=== PATIENT | male | born 1950 | race Two or more races ===

== ENCOUNTER 2022-12-11 11:25 | Inpatient (IN) | payer OTHER ==
[~2022-12-11] VITALS: Ht 177.8 cm; Wt 69.3 kg
[2022-12-11] MEDS ORDERED: SODIUM CHLORIDE 0.9% 1,000 ML IV ONE (12:00)
[2022-12-11 12:09] LABS: Basophils # (auto) 0.1 10 ^3/uL (0-0.2); Basophils % (auto) 0.9 % (0.0-2.0); Eosinophils # (auto) 0.3 10 ^3/uL (0-0.8); Eosinophils % (auto) 3.9 % (0.0-7.0); Hematocrit 36.1 % (41.0-53.0); Hemoglobin 12.1 g/dL (13.5-17.5); Lymphocytes % (auto) 11.1 % (10.0-50.0); Mean Corpuscular Hemoglobin 30.3 pg (28.0-32.0); Mean Corpuscular Hgb Conc. 33.4 g/dL (32.0-36.0); Mean Corpuscular Volume 90.9 fL (80.0-100.0); Monocytes # (auto) 0.8 10 ^3/uL (0-1.3); Monocytes % (auto) 8.7 % (0.0-12.0); Neutrophils # (auto) 6.7 10 ^3/uL (1.6-8.6); Neutrophils % (auto) 75.4 % (37.0-80.0); Red Blood Cells 3.98 10^6/uL (4.5-5.90); Red Cell Distribution Width 12.6 % (11.8-14.3); White Blood Cell 8.9 10^3/uL (4.4-10.8)
[2022-12-11 12:24] LABS: INR 0.97 (0.9-1.15); Partial Thromboplastin Time 31.3 sec (24.6-33.4)
[2022-12-11 12:30] LABS: Potassium 4.8 mmol/L (3.5-5.1)
[2022-12-11 12:36] LABS: Urine Bacteria NONE SEEN /hpf (None Seen); Urine Blood Negative /uL (Negative); Urine Specific Gravity 1.013 (1.001-1.035); Urine WBC <1 /hpf (0 - 3)
[2022-12-11 12:37] LABS: Albumin 3.3 g/dL (3.4-5.0); BUN/Creatinine Ratio 24.4 (10.0-20.0); Bilirubin, Total 0.4 mg/dL (0.2-1.0); Calcium 8.6 mg/dL (8.5-10.1); Magnesium 2.3 mg/dL (1.6-2.6); Total Protein 6.7 g/dL (6.4-8.2)
[2022-12-11] MEDS ORDERED: ENOXAPARIN SOD 60 MG/0.6 ML SYRINGE SC ONE (13:30)
[2022-12-11] MEDS ORDERED: cloNIDine HCL 0.1 MG TAB PO ONE (14:15)
[2022-12-11] MEDS ORDERED: LORazepam 2MG/ML-1ML VIAL IV ONE (16:15)
[2022-12-11] MEDS ORDERED: IOHEXOL 350 MG/ML 100ML IJ ONE (16:47)
[2022-12-11] MEDS: METOPROLOL TARTRATE 25 MG TAB PO SCH ×2 (17:30→23:10)
[2022-12-11] MEDS ORDERED: ACETAMINOPHEN 325 MG TAB PO PRN (18:30)
[2022-12-11] MEDS ORDERED: DEXTROSE (50%) 50ML SYRG IV PRN (18:30)
[2022-12-11] MEDS: hydrALAZINE HCL 20 MG/ML VL IV PRN (20:21)
[2022-12-11] MEDS ORDERED: LORazepam 2MG/ML-1ML VIAL IV PRN (22:00)
[2022-12-11 22:34] LABS: Cholesterol 116 mg/dL (< 200)
[2022-12-11 22:36] LABS: HDL Cholesterol 19 mg/dL (40-59); LDL Cholesterol 71 mg/dL (< 100); Triglycerides 68 mg/dL (< 150)
[2022-12-11 22:43] LABS: Alcohol, Urine < 3.0 mg/dL (0-10); Amphetamine Screen, Urine NEGATIVE (NEGATIVE); Barbiturate Scree,Urine NEGATIVE (NEGATIVE); Benzodiazephine Screen, Urine NEGATIVE (NEGATIVE); Cannabinoid Screen, Urine NEGATIVE (NEGATIVE); Cocaine Screen, Urine NEGATIVE (NEGATIVE); Opiate Scree,Urine NEGATIVE (NEGATIVE); Phencyclidine Screen, Urine NEGATIVE (NEGATIVE)
[2022-12-11] MEDS: InsuLIN REG 1unit/0.01ml Soln (100units/ml) SC SCH (23:07)
[2022-12-11] MEDS: ACCU-CHEK COMFORT CURVE STRIP VI SCH (23:08)
[2022-12-11] MEDS: ATORVASTATIN 20 MG TAB PO SCH (23:08)
[2022-12-12] MEDS: InsuLIN REG 1unit/0.01ml Soln (100units/ml) SC SCH ×4 (06:44→22:00)
[2022-12-12] MEDS: ACCU-CHEK COMFORT CURVE STRIP VI SCH ×4 (06:45→22:00)
[2022-12-12] MEDS: METOPROLOL TARTRATE 25 MG TAB PO SCH ×2 (10:00→23:29)
[2022-12-12] MEDS ORDERED: ASPirin-EC 81 mg tab PO SCH (10:00)
[2022-12-12] MEDS: ASPirin 81 mg TAB PO SCH (10:09)
[2022-12-12] MEDS ORDERED: ATOR20TA50 PO (11:19)
[2022-12-12] MEDS ORDERED: MET25T PO (11:19)
[2022-12-12] MEDS ORDERED: ASPI-325 PO (11:19)
[2022-12-12 11:53] LABS: Folate (Folic Acid) > 24.00 ng/mL (5.38-24)
[2022-12-12 23:23] VITALS: BP 153/74
[2022-12-12] MEDS: ATORVASTATIN 20 MG TAB PO SCH (23:29)
[2022-12-13] VITALS (8 sets, daily range): BP systolic 95–159; BP diastolic 60–82
[2022-12-13] MEDS: InsuLIN REG 1unit/0.01ml Soln (100units/ml) SC SCH ×4 (07:00→22:04)
[2022-12-13] MEDS: ACCU-CHEK COMFORT CURVE STRIP VI SCH ×4 (07:00→21:29)
[2022-12-13] MEDS: CLOPIDOGREL BISULFATE 75 MG TAB PO SCH (10:24)
[2022-12-13] MEDS: METOPROLOL TARTRATE 25 MG TAB PO SCH ×2 (10:24→21:15)
[2022-12-13] MEDS: ASPirin 81 mg TAB PO SCH (10:25)
[2022-12-13] MEDS ORDERED: SODIUM CHL 0.9% 0 ML ONE (11:37)
[2022-12-13] MEDS ORDERED: ANGIOMAX 250 MG VIAL IV ONE (11:37)
[2022-12-13] MEDS ORDERED: IODIXANOL 320MG/ML 100ML BTL IV ONE (11:50)
[2022-12-13] MEDS ORDERED: LIDOCAINE 2%HCL (LOCAL ANESTH.) INJ 10ml MDV ONE (11:50)
[2022-12-13] MEDS ORDERED: GLYCOPYRROLATE 0.2 MG/ML 1ML VIAL ONE (11:54)
[2022-12-13] MEDS ORDERED: hydrALAZINE HCL 20 MG/ML VL ONE (12:02)
[2022-12-13] MEDS: ATORVASTATIN 20 MG TAB PO SCH (21:15)
[2022-12-14] VITALS (9 sets, daily range): BP systolic 87–165; BP diastolic 51–81
[2022-12-14] MEDS: InsuLIN REG 1unit/0.01ml Soln (100units/ml) SC SCH ×4 (06:15→22:32)
[2022-12-14] MEDS: ACCU-CHEK COMFORT CURVE STRIP VI SCH ×4 (06:16→22:28)
[2022-12-14] MEDS: METOPROLOL TARTRATE 25 MG TAB PO SCH ×2 (09:45→22:38)
[2022-12-14] MEDS: ASPirin 81 mg TAB PO SCH (09:45)
[2022-12-14] MEDS: CLOPIDOGREL BISULFATE 75 MG TAB PO SCH (09:45)
[2022-12-14] MEDS: ATORVASTATIN 20 MG TAB PO SCH (22:38)
[2022-12-15 05:00] VITALS: BP 161/84
[2022-12-15] MEDS: InsuLIN REG 1unit/0.01ml Soln (100units/ml) SC SCH ×2 (06:18→12:09)
[2022-12-15] MEDS: ACCU-CHEK COMFORT CURVE STRIP VI SCH ×2 (06:18→12:08)
[2022-12-15] MEDS: hydrALAZINE HCL 20 MG/ML VL IV PRN (06:19)
[2022-12-15] MEDS: METOPROLOL TARTRATE 25 MG TAB PO SCH (08:51)
[2022-12-15] MEDS: CLOPIDOGREL BISULFATE 75 MG TAB PO SCH (08:51)
[2022-12-15] MEDS: ASPirin 81 mg TAB PO SCH (08:51)
[2022-12-15 09:47] VITALS: BP 112/46
[2022-12-15 14:22] VITALS: BP 113/62
== END 2022-12-15 16:35 | disposition home health service (06) | DRG 68 ==
LOC: ER 11:25 → TELE 18:18 → TELE-WESTW 12-12 22:10
PROVIDERS: ADMIT Internal Medicine; ATTEND Internal Medicine
PROC: B315YZZ Fluoroscopy of Bilateral Common Carotid Arteries using Other Contrast (ICD-10-PCS; principal; 2022-12-13)
PROC: B312YZZ Fluoroscopy of Left Subclavian Artery using Other Contrast (ICD-10-PCS; 2022-12-13)
PROC: B318YZZ Fluoroscopy of Bilateral Internal Carotid Arteries using Other Contrast (ICD-10-PCS; 2022-12-13)
PROC: B31CYZZ Fluoroscopy of Bilateral External Carotid Arteries using Other Contrast (ICD-10-PCS; 2022-12-13)
DX: I65.23 Occlusion and stenosis of bilateral carotid arteries (principal); E10.65 Type 1 diabetes mellitus with hyperglycemia; I10 Essential (primary) hypertension; M50.30 Other cervical disc degeneration, unspecified cervical region; E10.51 Type 1 diabetes mellitus with diabetic peripheral angiopathy without gangrene; Z20.822 Contact with and (suspected) exposure to COVID-19; E78.5 Hyperlipidemia, unspecified; Z79.899 Other long term (current) drug therapy; Z79.82 Long term (current) use of aspirin; Z80.7 Family history of other malignant neoplasms of lymphoid, hematopoietic and related tissues; Z83.3 Family history of diabetes mellitus; Z86.73 Personal history of transient ischemic attack (TIA), and cerebral infarction without residual deficits; Z89.411 Acquired absence of right great toe
CPT/HCPCS: 36223; 36415; 70450; 70496; 70551; 71045; 72141; 76937; 80053; 80061; 80307; 81001; 82607; 82746; 82962; 83735; 83880; 84443; 84484; 85025; 85610; 85730; 87426; 93005; 93306; 93886; 95819; 96360; 96372; 97163; G0378; J1815; J2001; Q9967

== ENCOUNTER 2022-12-27 09:17 | Inpatient (IN) | payer OTHER ==
[~2022-12-27] VITALS: Ht 177.8 cm; Wt 75.5 kg
[~2022-12-27 09:17] MED LIST: ASPI-325 PO; ATOR20TA50 PO; MET25T PO
[2022-12-27 10:26] LABS: Albumin 2.8 g/dL (3.4-5.0); Basophils # (auto) 0 10 ^3/uL (0-0.2); Basophils % (auto) 0.2 % (0.0-2.0); Calcium 8.3 mg/dL (8.5-10.1); Eosinophils # (auto) 0 10 ^3/uL (0-0.8); Hematocrit 30.4 % (41.0-53.0); Hemoglobin 10.1 g/dL (13.5-17.5); Lymphocytes # (auto) 0.5 10 ^3/uL (0.4-5.4); Lymphocytes % (auto) 3.1 % (10.0-50.0); Mean Corpuscular Hemoglobin 29.9 pg (28.0-32.0); Mean Corpuscular Hgb Conc. 33.4 g/dL (32.0-36.0); Mean Corpuscular Volume 89.6 fL (80.0-100.0); Monocytes # (auto) 1.3 10 ^3/uL (0-1.3); Neutrophils # (auto) 12.9 10 ^3/uL (1.6-8.6); Neutrophils % (auto) 87.7 % (37.0-80.0); Potassium 4.4 mmol/L (3.5-5.1); Red Blood Cells 3.39 10^6/uL (4.5-5.90); Red Cell Distribution Width 12.6 % (11.8-14.3); White Blood Cell 14.7 10^3/uL (4.4-10.8)
[2022-12-27 10:31] LABS: Bilirubin, Total 0.7 mg/dL (0.2-1.0); Total Protein 6.3 g/dL (6.4-8.2)
[2022-12-27] MEDS ORDERED: ENOXAPARIN SOD 80 MG/0.8ML SYRINGE SC ONE (11:00)
[2022-12-27] MEDS ORDERED: CLINDAMYCIN 600MG IV 50 ML IV ONE (12:45)
[2022-12-27] MEDS ORDERED: PIPERACILLIN-TAZOB 3.375GM 100 ML IV ONE (12:45)
[2022-12-27] MEDS ORDERED: SODIUM CHLORIDE 0.9% 1,000 ML IV ONE ×2 (12:45)
[2022-12-27] MEDS ORDERED: CLINDAMYCIN HCL 150 MG CAP PO ONE (13:15)
[2022-12-27] MEDS ORDERED: MORPHINE SULFATE INJ 2 MG/ml SYRG IV PRN ×3 (14:30)
[2022-12-27] MEDS ORDERED: DEXTROSE (50%) 50ML SYRG IV PRN (14:30)
[2022-12-27] MEDS ORDERED: NITROGLYCERIN 0.4 MG SL TAB SL PRN (14:30)
[2022-12-27] MEDS ORDERED: ONDANSETRON HCL 4 MG/2 ML VIAL IV PRN (14:30)
[2022-12-27] MEDS: SODIUM CHLORIDE 0.9% 1,000 ML IV SCH (14:54)
[2022-12-27 15:04] LABS: Cholesterol 90 mg/dL (< 200)
[2022-12-27 15:07] LABS: HDL Cholesterol 41 mg/dL (40-59); LDL Cholesterol 46 mg/dL (< 100); Triglycerides 48 mg/dL (< 150)
[2022-12-27 15:40] LABS: INR 1.15 (0.9-1.15)
[2022-12-27] MEDS: InsuLIN REG 1unit/0.01ml Soln (100units/ml) SC SCH ×2 (17:32→22:00)
[2022-12-27] MEDS: ACCU-CHEK COMFORT CURVE STRIP VI SCH ×2 (17:32→22:41)
[2022-12-27] MEDS: PIPERACILLIN-TAZOB 3.375GM 100 ML IV SCH (18:00)
[2022-12-27] MEDS ORDERED: fentaNYL CITRATE 100 MCG/2 ML VL ONE (18:32)
[2022-12-27] MEDS ORDERED: ANGIOMAX 250 MG VIAL IV ONE (18:32)
[2022-12-27] MEDS ORDERED: MIDAZOLAM HCL 2MG/2ML 2ml VIAL (1mg/ml) ONE (18:33)
[2022-12-27] MEDS ORDERED: SODIUM CHL 0.9% 0 ML ONE (18:33)
[2022-12-27] MEDS ORDERED: LIDOCAINE 2%HCL (LOCAL ANESTH.) INJ 20ML MDV ONE (18:49)
[2022-12-27] MEDS ORDERED: IODIXANOL 320MG/ML 100ML BTL IV ONE (18:49)
[2022-12-27 19:40] VITALS: BP 107/62
[2022-12-27 19:55] VITALS: BP 114/61
[2022-12-27 20:09] VITALS: BP 108/66
[2022-12-27 20:49] VITALS: BP 104/57
[2022-12-27] MEDS ORDERED: CLOP75TA70 PO (21:05)
[2022-12-27 22:00] VITALS: BP 104/57
[2022-12-27] MEDS: GABAPENTIN 300 MG CAP PO SCH (22:00)
[2022-12-27] MEDS: CARVEDILOL 3.125 MG TAB PO SCH (22:40)
[2022-12-27] MEDS: ATORVASTATIN 20 MG TAB PO SCH (22:40)
[2022-12-28] MEDS: PIPERACILLIN-TAZOB 3.375GM 100 ML IV SCH ×4 (00:13→17:38)
[2022-12-28 05:00] VITALS: BP 108/70
[2022-12-28 05:38] LABS: Basophils # (auto) 0 10 ^3/uL (0-0.2); Basophils % (auto) 0.3 % (0.0-2.0); Eosinophils # (auto) 0 10 ^3/uL (0-0.8); Eosinophils % (auto) 0.1 % (0.0-7.0); Hematocrit 29.9 % (41.0-53.0); Lymphocytes # (auto) 0.4 10 ^3/uL (0.4-5.4); Lymphocytes % (auto) 2.9 % (10.0-50.0); Mean Corpuscular Hemoglobin 29.6 pg (28.0-32.0); Mean Corpuscular Hgb Conc. 33.5 g/dL (32.0-36.0); Mean Corpuscular Volume 88.4 fL (80.0-100.0); Monocytes # (auto) 1.3 10 ^3/uL (0-1.3); Monocytes % (auto) 8.8 % (0.0-12.0); Neutrophils % (auto) 87.9 % (37.0-80.0); Red Blood Cells 3.38 10^6/uL (4.5-5.90); Red Cell Distribution Width 12.5 % (11.8-14.3); White Blood Cell 14.8 10^3/uL (4.4-10.8)
[2022-12-28] MEDS: GABAPENTIN 300 MG CAP PO SCH ×3 (05:48→21:36)
[2022-12-28 06:04] LABS: Albumin 2.4 g/dL (3.4-5.0); BUN/Creatinine Ratio 33.5 (10.0-20.0); Bilirubin, Total 0.6 mg/dL (0.2-1.0); Calcium 8.3 mg/dL (8.5-10.1); Total Protein 6.3 g/dL (6.4-8.2)
[2022-12-28] MEDS: ACCU-CHEK COMFORT CURVE STRIP VI SCH ×4 (07:00→22:03)
[2022-12-28] MEDS: InsuLIN REG 1unit/0.01ml Soln (100units/ml) SC SCH ×4 (07:00→22:00)
[2022-12-28] MEDS: SODIUM CHLORIDE 0.9% 1,000 ML IV SCH (07:10)
[2022-12-28 09:00] VITALS: BP 97/64
[2022-12-28] MEDS ORDERED: FAMOTIDINE 20 MG TAB PO SCH (10:00)
[2022-12-28] MEDS ORDERED: ENOXAPARIN SOD 80 MG/0.8ML SYRINGE SC SCH (10:00)
[2022-12-28] MEDS ORDERED: ASPirin-EC 81 mg tab PO SCH (10:00)
[2022-12-28] MEDS: CARVEDILOL 3.125 MG TAB PO SCH ×2 (10:02→22:03)
[2022-12-28 13:00] VITALS: BP 108/62
[2022-12-28 17:00] VITALS: BP 99/54
[2022-12-28 18:06] VITALS: BP 99/54
[2022-12-28] MEDS: ATORVASTATIN 20 MG TAB PO SCH (21:36)
[2022-12-28 22:00] VITALS: BP 121/74
[2022-12-29] MEDS: PIPERACILLIN-TAZOB 3.375GM 100 ML IV SCH (01:33)
[2022-12-29] MEDS ORDERED: ASPirin 81 mg TAB PO SCH (10:00)
== END 2022-12-29 02:53 | disposition short-term general hospital (02) | DRG 281 ==
LOC: ER 09:17 → TELE 14:27 → TELE-CENTR 16:55
PROVIDERS: ADMIT Hospitalist; ATTEND Hospitalist
PROC: B211YZZ Fluoroscopy of Multiple Coronary Arteries using Other Contrast (ICD-10-PCS; principal; 2022-12-27)
PROC: B215YZZ Fluoroscopy of Left Heart using Other Contrast (ICD-10-PCS; 2022-12-27)
PROC: 4A023N7 Measurement of Cardiac Sampling and Pressure, Left Heart, Percutaneous Approach (ICD-10-PCS; 2022-12-27)
DX: I21.4 Non-ST elevation (NSTEMI) myocardial infarction (principal); I13.0 Hypertensive heart and chronic kidney disease with heart failure and stage 1 through stage 4 chronic kidney disease, or unspecified chronic kidney disease; I42.9 Cardiomyopathy, unspecified; M86.8X6 Other osteomyelitis, lower leg; E86.0 Dehydration; Z83.3 Family history of diabetes mellitus; L08.9 Local infection of the skin and subcutaneous tissue, unspecified; E11.319 Type 2 diabetes mellitus with unspecified diabetic retinopathy without macular edema; E11.65 Type 2 diabetes mellitus with hyperglycemia; I50.9 Heart failure, unspecified; N18.9 Chronic kidney disease, unspecified; Z20.822 Contact with and (suspected) exposure to COVID-19; E11.22 Type 2 diabetes mellitus with diabetic chronic kidney disease; E11.51 Type 2 diabetes mellitus with diabetic peripheral angiopathy without gangrene; E11.69 Type 2 diabetes mellitus with other specified complication; Z86.73 Personal history of transient ischemic attack (TIA), and cerebral infarction without residual deficits; I25.10 Atherosclerotic heart disease of native coronary artery without angina pectoris; Z82.49 Family history of ischemic heart disease and other diseases of the circulatory system; Z89.429 Acquired absence of other toe(s), unspecified side; Z80.7 Family history of other malignant neoplasms of lymphoid, hematopoietic and related tissues; Z79.82 Long term (current) use of aspirin; Z79.899 Other long term (current) drug therapy
CPT/HCPCS: 36415; 70450; 71045; 73700; 80053; 80061; 82962; 83036; 83605; 84484; 85025; 85610; 85730; 86850; 86900; 86901; 87040; 87081; 87426; 93005; 93458; 99152; G0378; J1815; J2250; J2543; Q9967